=== PATIENT | female | born 1935 | race Caucasian/White ===

== ENCOUNTER → 2019-12-12 10:44 | Outpatient (CLI) | payer MEDICARE, SELFPAY ==
--- NOTE | 2019-12-12 | CA_ITS ---
APPROVED REPORT Exam: Pharmacologic Technologist: Taina Dow Ht: 5 ft 6 in Wt: 110 lbs BSA: 1.55 m2 HR: 77 bpm BP: 141/55 mmHg Indications: Chest pain Medical History Medications: Lisinopril,,,,, Levothyroxine,,,,, Lansoprazole,,,,, Calcium,,,,, SpirOnolactone,,,,, Stress Test Details Test: LEXISCAN HR Resting HR: 76 bpm Max Heart Rate (APMHR): 138 bpm Max HR Achieved: 118 bpm Target HR (85% APMHR): 117 bpm % of APMHR: 85 Recovery HR: 96 bpm BP Resting BP: 141.0/55.0 mmHg Max BP: 141.0/55.0 mmHg Recovery BP: 139.0/56.0 mmHg ECG Clinical Exercise duration: 04:06 min Highest Stage Achieved: Stress ECG Conclusion Resting ECG: Normal sinus rhythm, right bundle branch block, first degree AV block, Prominent T waves, early repolarization changes. Symptoms: Mild shortness of air and nausea. Malaise, aching in legs. No chest pain. Arrhythmias/Ectopy: Occasional isolated PVC ST-T Changes: No significant changes. Conclusion: Unremarkable Lexiscan stress. Myoview images reported separately. Test Summary RECOVERY 04:00 . . 109 . 129/ 63 . . REST 02:45 . . 76 . 141/ 55 . . Stage 1 . . . . . . . Myoview Injected Stage 1 01:00 . . 100 . . . . Stage 2 01:00 . . 109 . 127/ 54 . . Stage 3 01:00 . . 106 . 127/ 53 . . Stage 4 01:00 . . 107 . 127/ 55 . . Stage 4 01:06 . . 107 . 127/ 55 . Stop exercise at 04:06 RECOVERY 01:00 . . 111 . 129/ 63 . . RECOVERY 02:00 . . 117 . 129/ 63 . . RECOVERY 03:00 . . 115 . 129/ 63 . . RECOVERY 04:00 . . 109 . 129/ 63 . . RECOVERY 05:00 . . 109 . 129/ 63 . . RECOVERY 06:00 . . 105 . 129/ 63 . . RECOVERY 07:00 . . 98 . 129/ 63 . . RECOVERY 08:00 . . 93 . 139/ 56 . . RECOVERY 09:00 . . 88 . 139/ 56 . . RECOVERY 09:33 . . 89 . 139/ 56 . . Electronically signed by : Abdirashid Giles, 12/12/2019 17:59:45
--- NOTE | 2019-12-12 10:50 | NM_ITS ---
APPROVED REPORT Exam: Nuclear Stress Test Indication: Chest pain, Family history Patient Location: Outpatient Stress Tech: Taina Dow [place] Tech:Karen Baxter, CORINNET, RT (R)(N) Ht: 5 ft 6 in Wt: 110 lbs Bra Size: 34B HR: 77 bpm BP: 141/55 mmHg BSA: 1.55 m2 BMI: 17.7 History: Chest pain, Family history Procedure: Patient received a 0.4 mg of intravenous Lexiscan, resting heart rate 77 bpm, resting blood pressure 141/55 mmHg, with Lexiscan maximum heart rate achived was 108 bpm which is Less than 85 % of the maximum predicted heart rate and blood pressure was 127/54 mmHg. With Lexiscan, patient denied any complaint of chest pain. Electrocardiogram Resting electrocardiogram showed sinus rhythm right bundle branch block, with Lexiscan there is less than 1.[address] segment depression noted from the baseline EKG. The EKG portion of the Lexiscan Myoview is nondiagnostic. Cardiac Stress and Resting SPECT Images: Cardiac Stress and Resting SPECT images were obtained using technetium 99m Myoview 31.6 mCi stress and 10.28 mCi at rest. Gated SPECT for analysis of segmental wall motion and calculation of the ejection fraction also done. Cardiac stress and resting SPECT images show uniform myocardial activity without segmental perfusion abnormality, computer derived ejection fraction is 60% with no regional wall motion abnormality, right ventricle is normal size and contractility. Conclusion: 1. The EKG portion of the Lexiscan Myoview is nondiagnostic. 2. No scintigraphic evidence of reversible ischemia seen, computer derived ejection fraction is 60% with no regional wall motion abnormality, right ventricle is normal size and contractility. 3. Normal Lexiscan Myoview study. Electronically signed by : Abdirashid Giles, 12/12/2019 18:04:23
--- NOTE | 2019-12-12 11:20 | CA_ITS ---
APPROVED REPORT EXAM: Comprehensive 2D, Doppler, and color-flow Echocardiogram [place]erry Operator: Fatoumata Young RVT Ht: 5 ft 4 in Wt: 115lbs BSA: 1.55 BP: 110/65 mmHg Indications: CP 2D Dimensions LVOT 2.17 cm (M/F) 1.5-2.5 M-Mode Dimensions RVDd 1.98 cm (0.9-2.6) LVDd 5.71 cm (3.5-5.7) LVDs 3.04 cm (3.5-5.7) IVSd 0.88 cm (0.6-1.1) PWd 0.57 cm (0.6-1.1) EF (Teich) 77.50% FS 46.80% EDV (Teich) 160.70 mL ESV (Teich) 36.20 mL LV Diastology E/A Ratio 0.71 Aortic Valve LVOT Max 133.00 (70-110 cm/s) LVOT VTI 26.34 cm Mitral Valve MV A Velocity 59.00 (40-130 cm/s) Left Ventricle Left atrium is moderately enlarged, left ventricle is normal size, mild concentric left ventricular hypertrophy, visually estimated ejection fraction 55% with no regional wall motion abnormality, grade 1 diastolic dysfunction seen without tissue Doppler evidence of raise left atrial pressure. Right Ventricle Right atrium and right ventricle are mildly enlarged with normal contractility. Aortic Valve Aortic valve leaflets are not well visualized, this is likely a bicuspid aortic valve, there is no aortic stenosis, there is severe aortic insufficiency. Mitral Valve Mitral valve leaflets are minimally thickened, there is mild mitral regurgitation. Tricuspid Valve Tricuspid valve is grossly normal, there is mild tricuspid regurgitation. Pulmonic Valve Pulmonic valve is poorly visualized. Great Vessels Aortic root is enlarged, a CT scan of the chest with contrast is recommended to exclude presence of thoracic aneurysm. Pericardium No significant pericardial effusion noted. Conclusion 1. Biatrial enlargement, normal left ventricular size, mild concentric left ventricular hypertrophy, visually estimated ejection fraction 55% with no regional wall motion abnormality, grade 1 diastolic dysfunction seen without tissue Doppler evidence of raise left atrial pressure. 2. Enlarged aortic root and ascending aorta, a CT scan of the chest is recommended to exclude presence of thoracic aneurysm. 3. Likely bicuspid aortic valve without aortic stenosis, there is severe aortic insufficiency. 4. Mild mitral and tricuspid regurgitation. 5. No significant pericardial effusion noted. Electronically signed by : Abdirashid Giles, 12/12/2019 19:16:27
--- NOTE | 2019-12-12 13:22 | HMH.ITSHM ---
Current Home Medications as stated by this patient Jhoana Akhtar or medical collections representative. []LEVOTHYROXINE LISINOPRIL LANSAOPRAZOLE SPIRONOLACTONE CALCIUM
== END ==
PROVIDERS: PCP Internal Medicine; Visit Provider Internal Medicine
DX: R07.9 Chest pain, unspecified (principal)
CPT/HCPCS: 78452; 93017; 93306; A9502; J2785

== ENCOUNTER → 2021-07-14 11:22 | Outpatient (POV) | payer MEDICARE, SELFPAY ==
[2021-07-14 12:39] VITALS: BP 144/58; PULSE 77; RESP 18; TEMP 36.9; O2SAT 99; BMI 18.0
--- NOTE | 2021-07-25 12:36 | P.CONS_ITS ---
[facility] Pain Management SOAP Note Subjective:: Very pleasant 86-year-old white female who presents today for initial evaluation on her chronic low back pain. She states that she has been experiencing this pain for many months now and states that it is persistent in nature. She states that the pain is a dull deep aching pain in the low back region on the right. She notes some radiation of pain into her right leg, above the knee level. She says the pain is worse with trying to stand up after prolonged sitting. She does not note the pain to be worse with bending or twisting activities. She has tried [id number] Tylenol and ibuprofen with very minimal pain relief. She also has tried home stretching exercises for greater than 6 weeks with very minimal pain relief. She rates her pain today as a 6 out of 10. Objective:: General: Alert and oriented x3, no acute distress, pleasant and cooperative Lungs: Resps E/U, symmetric chest expansion Eyes: PERRL Musculoskeletal: limited flexion and extension of the lumbar spine secondary to pain. Deep tendon reflexes were normal in bilateral lower extremities. Motor exam was grossly intact in the bilateral lower extremities, antalgic gait noted. Tenderness to palpation over the right SI joint. Positive Gaenslen's, positive SI joint compression, and positive Gordo's on the right. Neurological: Speech is clear, pressure dispatcher equal, no gross sensory deficits Assessment:: Right-sided sacroiliitis, chronic low back pain, right-sided hip pain Plan:: I discussed with the patient that she will benefit from a right-sided SI joint injection under fluoroscopy. We will schedule her for the above injections perf ormed at the next clinic visit in 2 to 3 weeks. Jay and prior drug 6 reviewed and appropriate. [facility] History Medical History: Reports:: Gastroesophageal Reflux Disease(GERD), Heart Murmur, Hypertension Denies:: Cancer, Diabetes Mellitus Type 1, Diabetes Mellitus Type 2, MRSA *Have you ever received a pneumonia vaccine?: No *Have you received a flu vaccine this season?: Yes Other Medical History: Reports: Arthritis, Hypothyroidism, Thyroid Disease Other Surgeries: Yes: No Previous Surgery - *Social History Smoking Status: Never smoker Alcohol Intake: never Alcohol Intake Frequency:: holidays/special occasions only Substance Use Type: denies use *Occupational Status:: retired *Travel in the last 8 weeks: None Family Hx:: No significant family history
== END ==
PROVIDERS: Visit Provider Anesthesiology Pain Medicine
DX: M46.1 Sacroiliitis, not elsewhere classified (principal); M54.50 Low back pain, unspecified; G89.29 Other chronic pain; M25.551 Pain in right hip
CPT/HCPCS: 80305; 99202; G0463

== ENCOUNTER → 2021-07-14 13:43 | Outpatient (CLI) | payer MEDICARE, SELFPAY ==
[2021-07-14 17:06] LABS: Phencyclidine Screen,Urine Negative ng/ml (<25)
[2021-07-14 17:12] LABS: Amphetamine/Metha Screen,Urine Negative ng/ml (<1000)
[2021-07-14 17:13] LABS: Barbiturates Screen,Urine Negative ng/ml (<200); Benzodiazepines Screen,Urine Negative ng/ml (<200)
[2021-07-14 17:14] LABS: Cannabinoid Screen,Urine Negative ng/ml (<50)
[2021-07-14 17:16] LABS: Methadone Screen,Urine Negative ng/ml (<300)
[2021-07-14 17:17] LABS: Opiate Screen,Urine Positive ng/ml (<300)
[2021-07-14 17:18] LABS: Cocaine Screen,Urine Negative ng/ml (<300)
== END ==
PROVIDERS: Visit Provider Internal Medicine
DX: I10 Essential (primary) hypertension (principal); I35.1 Nonrheumatic aortic (valve) insufficiency; I38 Endocarditis, valve unspecified; I45.10 Unspecified right bundle-branch block; I45.2 Bifascicular block; K59.00 Constipation, unspecified; M54.9 Dorsalgia, unspecified; R94.31 Abnormal electrocardiogram [ECG] [EKG]; Z79.899 Other long term (current) drug therapy
CPT/HCPCS: 80305

== ENCOUNTER 2021-07-25 11:28 | Day surgery (SDC) | payer MEDICARE, SELFPAY ==
[2021-07-25 11:36] VITALS: BP 155/79; BP 162/74; BP 164/76; PULSE 83; PULSE 93; PULSE 94; RESP 16; RESP 20; TEMP 36.6; O2SAT 96; O2SAT 97; BMI 19.5
--- NOTE | 2021-07-25 12:17 | P.PCN_ITS ---
- Procedure Date: 07/25/21 Time: 12:17 Anesthesiologist:: Barrett Farrar MD Complications:: None Pre-procedure Diagnosis:: Sacroiliitis Post-procedure Diagnosis:: Same Indications for Procedure:: The patient is a pleasant 86-year-old white female who we are treating for right-sided hip pain. She is tender over the right SI joint. She has positive Gordo's test on the right side. She is positive Sammy test on the right side. She is positive SI joint compression test on the right side. She has a positive distraction test on the right side. We will plan on a right SI joint injection under fluoroscopy today to help with her pain symptoms. Procedure Details:: Right SI joint injection under fluoroscopy Informed consent was obtained and the risks and benefits of the procedure was going to the patient. Patient was taken to the procedure room. Patient was placed prone on the procedure table. The right hip was prepped using ChloraPrep. The skin and subcutaneous tissues were anesthetized using lidocaine. I placed a 22-gauge spinal needle into the inferior aspect of the right SI joint. Needle placement was confirmed with dye. After this we inj ected 5 mL bupivacaine 0.25% and Depo-Medrol 40 mg into the right SI joint. The patient tolerated the procedure well with no complication. Plan and Disposition:: We will follow-up with her in 2 weeks. Will reevaluate symptoms at that time.
[2021-07-25 12:25] VITALS: BP 159/68; PULSE 76; RESP 20; O2SAT 95
== END 2021-07-25 12:25 | disposition home or self-care (01) ==
LOC: SC.PAINP 11:29
PROVIDERS: PCP Internal Medicine; Visit Provider Anesthesiology
DX: M46.1 Sacroiliitis, not elsewhere classified (principal); I10 Essential (primary) hypertension; E03.9 Hypothyroidism, unspecified
CPT/HCPCS: 27096; G0260; J1040; Q9966

== ENCOUNTER → 2021-08-21 10:17 | Outpatient (POV) | payer MEDICARE, SELFPAY ==
[2021-08-21 10:28] VITALS: BP 169/77; PULSE 87; RESP 20; O2SAT 98; BMI 19.5
--- NOTE | 2021-08-21 11:43 | P.CONS_ITS ---
[facility] Pain Management SOAP Note Subjective:: Patient is a pleasant 86-year-old female who presents today for follow-up. We are currently treating this patient for bilateral sacroiliitis. We have been managing this patient with injective therapy. She had her right SI injection about a month ago and reported the 100% relief. She reports no issues after the injection. She was able to increase her activity after the injection. Today, she states that she has been having trouble with her left SI and would like to see if we can do any injection for it. She states that her pain starts from her left upper buttock that radiates down to her left leg and does not cross her left knee. She has been having issues on her left hip with any prolonged activity such as sitting, standing, and walking. For pain, she takes Tylenol as needed. She is not on any scheduled medications. Review of Systems: General: No recent weight changes, no fever, no sleep disturbances Respiratory: No cough, no shortness of air, no recurring pulmonary infections Cardiovascular/peripheral vascular: No chest pain, no palpitations, no edema, no shortness of breath Gastrointestinal: No new onset incontinence, normal bowel movements reported Genitourinary: No new onset incontinence Musculoskeletal: Left hip pain Psychiatric: [Normal mood/affect] Neurological: [Denies weakness in extremities], [denies balance issues] Objective:: Physical Exam: General: Alert and oriented x3, no acute distress, pleasant and cooperative, [on room air] Lungs: Respirations even and unlabored, symmetrical chest expansion Eyes: PERRL Musculoskeletal: Left SI is positive for DONAVAN, Michelle's, Fairview's, Gaenslen's, compression, and distraction. Neurological: Speech clear, no gross sensory deficit Assessment:: Bilateral sacroiliitis Plan:: Patient has been having issues with her left SI. We have treated her right SI with injection last month with 100% relief of symptoms. Left SI is positive for DONAVAN, Michelle's, Fairview's, Gaenslen's, compression, and distraction. Patient has tried other conservative therapy such as physical therapy and at home exercise program in 6 weeks. We will schedule the patient for a left SI injection. Risk and benefits have been discussed with the patient. Patient would like to proceed with the procedure. Patient has been instructed to contact the clinic with any concerns before the next appointment. Dr. Farrar has reviewed this note and agrees with this plan of care. This note was dictated using voice recognition software and make contain errors or omissions. [facility] History Medical History: Reports:: Gastroesophageal Reflux Disease(GERD), Heart Murmur, Hypertension Denies:: Cancer, Diabetes Mellitus Type 1, Diabetes Mellitus Type 2, MRSA *Have you ever received a pneumonia vaccine?: No *Have you received a flu vaccine this season?: Yes Other Medical History: Reports: Arthritis, Hypothyroidism, Thyroid Disease Other Surgeries: Yes: No Previous Surgery - *Social History Smoking Status: Never smoker Alcohol Intake: never Alcohol Intake Frequency:: holidays/special occasions only Substance Use Type: denies use *Occupational Status:: retired *Travel in the last 8 weeks: None Family Hx:: No significant family history
== END ==
PROVIDERS: Visit Provider Student in an Organized Health Care Education/Training Program
DX: M46.1 Sacroiliitis, not elsewhere classified (principal)
CPT/HCPCS: 99212; G0463

== ENCOUNTER 2021-08-29 11:52 | Day surgery (SDC) | payer MEDICARE, SELFPAY ==
[2021-08-29 12:27] VITALS: BP 131/68; PULSE 79; RESP 16; TEMP 36.8; O2SAT 98; BMI 18.6
[2021-08-29 12:38] VITALS: BP 163/52; PULSE 83; RESP 18
[2021-08-29 12:39] VITALS: BP 163/52; PULSE 80; RESP 18; O2SAT 99
--- NOTE | 2021-08-29 12:45 | HMH.PMPROC ---
- Procedure Date: 08/29/21 Time: 12:45 Anesthesiologist:: Arnold Mills CRNA Complications:: None Pre-procedure Diagnosis:: Left sacroiliitis Post-procedure Diagnosis:: Same Indications for Procedure:: A pleasant 86-year-old female that presents to our injection clinic today for left SI joint injection. Patient has had success with right SI joint injection reporting 100% relief. Patient describes the left SI joint pain is constant, dull, aching. She has extreme point tenderness over the left SI joint. Will injection for her today. Procedure Details:: Procedure: Left sacroiliac injection under fluoroscopy Informed consent was obtained and the risk and benefits of the procedure were explained to the patient.~ The patient was taken to the procedure room and noninvasive monitors were placed including noninvasive blood pressure cuff and pulse oximeter.~ The patient was placed prone on the procedure table.~ The~ left hip was cleansed using Betadine as a cleansing solution.~ C-arm fluorosocpy was used to view the left SI joint.~ The skin and subcutaneous tissues were anesthetized using Lidocaine 1.5% and a 25-gauge needle.~ After this, a 22-gauge spinal needle was inserted under fluoroscopic guidance into the inferior aspect of the left SI joint.~ Omnipaque dye was injected and a good spread was seen throughout the joint.~ After this, approximately 5 mL of bupivacaine 0.25% and Depo-Medrol 40 mg was incrementally injected into the sacroiliac joint.~ The patient tolerated the procedure well with no complications.~ The patient was observed in the Pain Clinic for a period of 30-45 minutes, then discharged home neurologically intact.~ Plan and Disposition:: Patient was discharged from the clinic without difficulty. She will return to follow-up with us in the clinic
[2021-08-29 12:46] VITALS: BP 169/68; PULSE 76; RESP 18; O2SAT 99
== END 2021-08-29 12:47 | disposition home or self-care (01) ==
LOC: SC.PAINP 11:53
PROVIDERS: PCP Internal Medicine; Visit Provider Nurse Anesthetist, Certified Registered
DX: M46.1 Sacroiliitis, not elsewhere classified (principal); K21.9 Gastro-esophageal reflux disease without esophagitis; I10 Essential (primary) hypertension; R01.1 Cardiac murmur, unspecified
CPT/HCPCS: 27096; G0260; J1040

== ENCOUNTER → 2021-10-21 09:04 | Outpatient (POV) | payer MEDICARE, SELFPAY ==
--- NOTE | 2021-10-21 09:36 | P.CONS_ITS ---
[facility] Pain Management SOAP Note Subjective:: Patient is a pleasant 86-year-old female who presents today as a telehealth visit for follow-up after a left SI injection on August 29, 2021. Patient is currently being treated for sacroiliitis. After the injection, patient had significant relief of about 70 to 80% for couple weeks. However, patient states that she fell about 2 and half weeks ago. Denies seeking any medical care. Denies any fracture. She does state that her pain is back to baseline and has been hurting since then. She is also complaining of pain on her right hip. She states that this same location as her left SI pain. She cannot tolerate any prolonged standing or walking. Denies any loss of bowel or bladder functions. Rates pain today as 8 out of 10. Jay [phone] with an active morphine equivalent of 0. Review of Systems: General: No recent weight changes, no fever, no sleep disturbances Respiratory: No cough, no shortness of air, no recurring pulmonary infections Cardiovascular/peripheral vascular: No chest pain, no palpitations, no edema, no shortness of breath Gastrointestinal: No new onset incontinence, normal bowel movements reported Genitourinary: No new onset incontinence Musculoskeletal: Bilateral hip pain Psychiatric: [Normal mood/affect] Neurological: [Denies weakness in extremities], [denies balance issues] Objective:: General: Alert and oriented x3, pleasant and cooperative Lungs: Patient is able to say complete sentences without dyspnea Neurological: Speech clear Assessment:: Sacroiliitis Plan:: Patient had significant relief after her left SI injection until about 2 and half weeks ago when she slipped in the kitchen and fell. She did not seek any medical help. Denies any fractures. She is complaining of worsening pain on bilateral SI. We will schedule her for bilateral SI injection. Risk and benefits have been discussed with the patient. Patient would like to proceed with this procedure. At her injection appointment, will consider scheduling her for bilateral hip and pelvic x-ray. Patient has been instructed to contact the clinic with any concerns before the next appointment. Dr. Farrar has reviewed this note and agrees with this plan of care. This note was dictated using voice recognition software and make contain errors or omissions. [facility] History Medical History: Reports:: Gastroesophageal Reflux Disease(GERD), Heart Murmur, Hypertension Denies:: Cancer, Diabetes Mellitus Type 1, Diabetes Mellitus Type 2, MRSA *Have you ever received a pneumonia vaccine?: No *Have you received a flu vaccine this season?: Yes Other Medical History: Reports: Arthritis, Hypothyroidism, Thyroid Disease Other Surgeries: Yes: No Previous Surgery Amputation: No Fractures: No - *Social History Smoking Status: Never smoker Alcohol Intake: never Alcohol Intake Frequency:: holidays/special occasions only Substance Use Type: denies use *Occupational Status:: retired *Travel in the last 8 weeks: Inside the [facility] Family Hx:: No significant family history
== END ==
PROVIDERS: Visit Provider Student in an Organized Health Care Education/Training Program
DX: M46.1 Sacroiliitis, not elsewhere classified (principal); M25.551 Pain in right hip
CPT/HCPCS: 99212; G0463

== ENCOUNTER 2021-10-31 11:38 | Day surgery (SDC) | payer MEDICARE, SELFPAY ==
[2021-10-31 11:51] VITALS: BP 179/74; PULSE 87; RESP 20
[2021-10-31 11:52] VITALS: BP 182/66; PULSE 77; RESP 18; TEMP 36.8; O2SAT 97; BMI 18.6
--- NOTE | 2021-10-31 11:59 | P.PCN_ITS ---
- Procedure Date: 10/31/21 Time: 11:59 Anesthesiologist:: Arnold Mills CRNA Complications:: None Pre-procedure Diagnosis:: Bilateral sacroiliitis Post-procedure Diagnosis:: Same Indications for Procedure:: Very pleasant 86-year-old female who presents to our clinic today for bilateral SI joint injections. She rates her pain 7/10. She describes her low back pain as constant, dull, aching. Patient also describing radicular symptoms into her hips. Procedure Details:: Procedure: Bilateral sacroiliac joint injections under fluoroscopy Informed consent was obtained and the risks and benefits of the procedure were explained to the patient.~ The patient was taken to the procedure room and noninvasive monitors were placed including a noninvasive blood pressure cuff and pulse oximeter.~ The patient was placed prone on the procedure table. Both hips were cleansed using Betadine as a cleansing solution. C-arm fluoroscopy was used to view the right sacroiliac joint.~ The skin and subcutaneous tissues were anesthetized using lidocaine 1.5% and a 25-gauge needle.~ After this, a 22-gauge spinal needle was inserted under fluoroscopic guidance into the inferior aspect of the right sacroiliac joint.~ Omnipaque dye was injected and good spread was seen throughout the joint.~ After this, approximately 5 mL of bupivacaine, 0.25% and Depo-Medrol, 40 mg was incrementally injected into the right sacroiliac joint. We then moved to the left sacroiliac joint.~ The skin and subcutaneous tissues were anesthetized using lidocaine 1.5% and a 25-gauge needle.~ After this, a 22- gauge spinal needle was inserted under fluoroscopic guidance into the inferior aspect of the left sacroiliac joint.~ Omnipaque dye was injected and good spread was seen throughout the joint. After this, approximately 5 mL of bupivacaine, 0.25% and Depo-Medrol, 40 mg was incrementally injected into the left sacroiliac joint.~ The patient tolerated the procedure well with no complications. The patient was observed in the Pain Clinic and then was discharged home neurologically intact. Plan and Disposition:: Patient was discharged without incident.
[2021-10-31 12:01] VITALS: BP 159/65; PULSE 74; RESP 20; O2SAT 98
== END 2021-10-31 12:02 | disposition home or self-care (01) ==
LOC: SC.PAINP 11:39
PROVIDERS: PCP Internal Medicine; Visit Provider Nurse Anesthetist, Certified Registered
DX: M46.1 Sacroiliitis, not elsewhere classified (principal); I10 Essential (primary) hypertension; K21.9 Gastro-esophageal reflux disease without esophagitis
CPT/HCPCS: 27096; G0260; J1040

== ENCOUNTER → 2021-11-13 13:48 | Outpatient (POV) | payer MEDICARE, SELFPAY ==
--- NOTE | 2021-11-13 21:14 | HMH.PAINSOAP ---
[facility] Pain Management SOAP Note Subjective:: Patient is a pleasant 86-year-old female who presents today as a telehealth for follow-up after a bilateral SI injection. Patient is currently being treated for sacroiliitis. After her injection, patient states that she had about 70 to 80% of relief. She has been able to increase her activity since this injection. This is the patient's second bilateral SI injection. She has always done well with each injection and typically gets 2 to 3 months of relief. Today, her spoke in behalf of the patient and said that overall, patient is doing well. She does have some discomfort intermittently. Rates her pain today as 2 out of 10. Patient takes OTC medication for pain. Review of Systems: General: No recent weight changes, no fever, no sleep disturbances Respiratory: No cough, no shortness of air, no recurring pulmonary infections Cardiovascular/peripheral vascular: No chest pain, no palpitations, no edema, no shortness of breath Gastrointestinal: No new onset incontinence, normal bowel movements reported Genitourinary: No new onset incontinence Musculoskeletal: Bilateral hip pain Psychiatric: [Normal mood/affect] Neurological: [Denies weakness in extremities], [denies balance issues] Objective:: General: Alert and oriented x3, pleasant and cooperative Lungs: Patient is able to say complete sentences without dyspnea Neurological: Speech clear Assessment:: Bilateral sacroiliitis Plan:: Patient continues to have significant relief after the bilateral SI injection #2. Patient typically gets 2 to 3 months of relief after each injection. We will follow this patient in 2 months in our clinic. Patient has been instructed to contact the clinic with any concerns before the next appointment. Dr. Farrar has reviewed this note and agrees with this plan of care. This note was dictated using voice recognition software and make contain errors or omissions. [facility] History Medical History: Reports:: Gastroesophageal Reflux Disease(GERD), Heart Murmur, Hypertension Denies:: Cancer, Diabetes Mellitus Type 1, Diabetes Mellitus Type 2, MRSA *Have you ever received a pneumonia vaccine?: No *Have you received a flu vaccine this season?: Yes Other Medical History: Reports: Arthritis, Hypothyroidism, Thyroid Disease Other Surgeries: Yes: No Previous Surgery Amputation: No Fractures: No - *Social History Smoking Status: Never smoker Alcohol Intake: never Alcohol Intake Frequency:: holidays/special occasions only Substance Use Type: denies use *Occupational Status:: retired *Travel in the last 8 weeks: Inside the [facility] Family Hx:: No significant family history
== END ==
PROVIDERS: Visit Provider Student in an Organized Health Care Education/Training Program
DX: M46.1 Sacroiliitis, not elsewhere classified (principal)
CPT/HCPCS: 99212; G0463